=== PATIENT | male | born 1945 | race Caucasian/White ===

== ENCOUNTER 2024-03-13 11:00 | Inpatient (IN) | payer MEDICARE ==
[~2024-03-13] VITALS: Ht 167.6 cm; Wt 121.5 kg
--- NOTE | 2024-03-13 13:51 | EKG ---
[facility] Test Date: 2024-03-13 Test Time: 13:20:44 Pat Name: PATRICIO INFANTE Department: Room: Gender: M Quality Intern: [id number] : 1945 Requested By: KENTON COPPOLA Order Number: [id number] Reading MD: Elliot Engel Measurements Intervals [place] Rate: 59 P: 0 UT: 77 QRS: -18 QRSD: 128 T: 39 QT: 451 QTc: 446 Interpretive Statements Sinus rhythm Right bundle branch block No previous ECG available for comparison Electronically Signed On 03-13-2024 17:05:43 CDT by Elliot Engel Please click the below link to view image of tracing.
[2024-03-13 14:12] VITALS: BP_SYST 155; PULSE 60; RESP 18; TEMP 98.1
[2024-03-13] MEDS ORDERED: FEBU40TA6 PO (14:39)
[2024-03-13] MEDS ORDERED: VITAMIN B6 PO (14:39)
[2024-03-13] MEDS ORDERED: LUTE1CAP5 PO (14:39)
[2024-03-13] MEDS ORDERED: TORS5TAB12 PO (14:39)
[2024-03-13] MEDS ORDERED: VITAMIN A PO (14:39)
[2024-03-13] MEDS ORDERED: VITAMIN C PO (14:39)
[2024-03-13] MEDS ORDERED: SUPER BEETS PO (14:39)
[2024-03-13] MEDS ORDERED: VITAMIN D3 PO (14:39)
[2024-03-18] VITALS (26 sets, daily range): BP systolic 108–169; BP diastolic 53–93; PULSE 57–91; RESP 17–20; TEMP 97.1–98.6; O2SAT 96–97
[2024-03-18] MEDS: LACTATED RINGERS 1000ML 1,000 ML IV ONE (07:09)
[2024-03-18] MEDS: ceFAZolin SODIUM 2 GM VIAL ONE (07:09)
[2024-03-18] MEDS: acetaMINOPHEN 100 ML ONE (07:39)
[2024-03-18] MEDS: morPHINE 4 MG SYG ONE (07:39)
[2024-03-18] MEDS: FAMOTIDINE 20MG VIAL IV ONE (07:40)
[2024-03-18] MEDS ORDERED: ROPivacaine 0.5% 5MG/ML 30ML ONE ×2 (07:42→07:54)
[2024-03-18] MEDS ORDERED: TRANEXAMIC ACID 1000MG/10ML ONE ×2 (07:42→07:43)
[2024-03-18] MEDS ORDERED: FENTanyl CITRate PF 50 MCG/1 ML 2ML VIAL ONE ×2 (07:52→12:00)
[2024-03-18] MEDS ORDERED: rocuRONium bROMide 10MG/1ML 5ML VL ONE (07:52)
[2024-03-18] MEDS ORDERED: MIDAZOLAM HCL 1 MG/ML 2ML VIAL ONE (07:52)
[2024-03-18] MEDS ORDERED: proPOFol 10 MG/ML 20ML VIAL IV ONE (07:53)
[2024-03-18] MEDS ORDERED: LIDOCAINE PF 100MG/5ML (2%) SYRINGE 5ML ONE (07:53)
[2024-03-18] MEDS: ROPivacaine 0.5% 5MG/ML 30ML IJ ONE (08:55)
[2024-03-18] MEDS ORDERED: ePHEDrine SULFate 50 MG/ML AMPULE ONE (09:18)
[2024-03-18] MEDS ORDERED: dexaMETHasone SOD PHOSPHATE 4 MG/ML 1ML VIAL ONE (09:21)
[2024-03-18] MEDS ORDERED: ondanSETRON 4MG INJ ONE (09:22)
[2024-03-18] MEDS ORDERED: NEOSTIGMINE METHYLSULFATE 1MG/ML IV ONE (10:02)
[2024-03-18] MEDS ORDERED: GLYCOPYRROLATE 0.2 MG/ML 5 ML VIAL ONE (10:02)
[2024-03-18] MEDS ORDERED: traMADol HCL 50 MG TABLET PO PRN (12:30)
[2024-03-18] MEDS ORDERED: PoTASSium chloRIDE 20MEQ ER 20 MEQ ERTAB PO PRN (12:30)
[2024-03-18] MEDS ORDERED: FERROUS FUMARATE 324 MG TABLET PO PRN (12:30)
[2024-03-18] MEDS ORDERED: CALCIUM CARB 500MG PO PRN (12:30)
[2024-03-18] MEDS ORDERED: PoTASSium chloRIDE 20MEQ/100ML 100 ML IV PRN (12:30)
[2024-03-18] MEDS ORDERED: PoTASSium chl 10% ELIXIR 20MEQ 20 MEQ/15 ML UDCUP PO PRN (12:30)
--- NOTE | 2024-03-18 13:19 | HMCIMG ---
KNEE/PATELLA 1-2VWS RT HISTORY: Post total arthroplasty COMPARISON: None TECHNIQUE: 2 images of right knee were obtained status post surgery. FINDINGS: Total right knee arthroplasty changes are seen with soft tissue swelling and soft tissue emphysema. Vascular calcifications are seen. There is no acute displaced fracture or dislocation. Degenerative changes are seen. IMPRESSION: 1. Findings as described above.
[2024-03-18] MEDS: ondanSETRON 4MG INJ IVP PRN (13:22)
[2024-03-18] MEDS: 0.9%NACL 1000ML 1,000 ML IV SCH (13:23)
--- NOTE | 2024-03-18 13:49 | OP ---
Operative Note: DATE OF PROCEDURE: 03/18/24 PREOPERATIVE DIAGNOSIS: Right knee osteoarthritis. POSTOPERATIVE DIAGNOSIS: Right knee osteoarthritis. PROCEDURE PERFORMED: Right knee total knee arthroplasty. SURGEON: Marivel Tabares MD FIRST FRONT VENTILATOR: Jay Santiago and Annette Soliz. ANESTHESIA: General with adductor canal block. ANESTHESIA: JULIAN Conley. ESTIMATED BLOOD LOSS: 100 cc. COMPLICATIONS: None. DRAINS: None. SPECIMENS REMOVED: resected bone. Not sent to pathology. IMPLANTS: [employer] II BCS size 7 Oxinium femur, size 6 tibial base plate, 35 mm patella, 13 mm polyethylene STATEMENT OF MEDICAL NECESSITY: The patient is a 78-year-old male who suffers from right knee osteoarthritis failing conservative management. After discussion of the risks, benefits, and alternatives with the patient, they voluntarily agreed to undergo the aforementioned procedure. DESCRIPTION OF PROCEDURE: Patient was properly identified in the preoperative holding area. Surgical site marking was verified and surgery consent reviewed. The patient was then taken to the operating room and placed in supine position on the OR table. After induction of general anesthesia, preoperative antibiotics were given, all bony prominences were well-padded, and a well padded tourniquet was applied but not inflated at this time. The right lower extremity was then prepped and draped in usual sterile fashion. Surgical time out was done verifying correct surgery, side, site, and location to be performed. We then began the procedure by exsanguinating the limb using an Esmarch and inflating the tourniquet to 350 mmHg. At this point, we made an anterior midline incision using a 10 blade, coming down sharply the level of the fascia. Skin flaps were elevated medially and laterally. We then obtained a clean 10 blade and performed a standard medial parapatellar arthrotomy. We excised the infrapatellar fat pad. We performed our soft tissue releases off of the tibia. We transected the ACL and removed the anterior portion of the medial & lateral meniscus. We then brought the knee into hyperflexion with the patella everted. We used our entry reamer to enter the femoral canal. We then placed our intramedullary cutting guide for our distal femoral cutting block. We then performed our distal femoral osteotomy ensuring appropriate rotation and removed the bony wafer. We then removed these pins and block and then used jig 2 to size the distal femur with the after mentioned size found. We then placed our 5-in-1 cutting block in 5 degrees of external rotation and took our 5 cuts ensuring to protect the patellar tendon and the collateral ligaments. We then removed the cutting block and our bony fragments using a curved osteotome. We then placed our PCL retractor subluxating the tibia anteriorly. Using an extra medullary tibial cutting guide, we hung the block for our proximal tibial cut taking 2 mm off the more diseased portion. Prior to pinning this block in place, we ensured appropriate varus/valgus alignment and posterior slope similar to the nulato slope of the patient's knee. We then performed our proximal tibial osteotomy and removed the bony wafer using Bovie electrocautery to release any remaining soft tissue attachments. We then used our tibial sizing paddle and checked once more for varus & valgus alignment and found this to be appropriate. At this point, we pinned our tibial paddle in place. We then removed the PCL retractor and subluxated the tibia posteriorly while we placed our femoral trial component. We then finished preparing the notch with the reamer and box chisel. The notch portion of the trial femoral component was then placed. A posterior stabilized polyethylene, size 9 trial was placed. This was immediately increased up to a size 11 polyethylene secondary to laxity with varus and valgus stress. We noted at this point the rotation of the tibial base plate appeared to cause problems with the articulation when going into flexion. We corrected the tibial base plate rotation. Patient was noted with a range of motion to be tight in the posterolateral portion of the knee. We elected to recut the tibia allowing for a small portion of the patient's valgus alignment to remain in order to balance. We also added more posterior slope. We then increased our polyethylene size up to a 13 mm. The knee was then taken through range of motion and found to have stable full range of motion. We then placed a bump under the ankle and everted the patella to perform our freehand cut of the undersurface the patella. We then sized our patella and reamed to the lug holes for this. We placed our trial patellar component and begin to take the knee through range of motion. The patella had extreme lateral tracking, and we performed a large lateral release. However the patella continued to have significant lateral tracking. We adjusted our tibial component rotation and placed a towel clip to approximate the soft tissues and had better patellar tracking. At this point we began removing our trial components and punched the tibial keel prior to removing our tibial trial component. Final components were opened and cement was mixed on the back table while we injected local cocktail in the posterior capsule. We then thoroughly irrigated out the bone and dried the bony surfaces. We cemented our tibial component in place ensuring to remove excess cement and placed our trial polyethylene. We then cemented our femoral component in place once again taking time to ensure excess cement was removed leg was brought into full extension to help squeeze the excess cement from around the femoral component. We then brought the knee back in a flexion to remove this portion of the cement at this point we placed the ankle in a bump thoroughly irrigated off the patellar component and cemented our patellar component in standard fashion again removing excess cement. While we waited for the cement to cure, we thoroughly irrigated out the wound with normal saline. Once our cement had cured, we took the knee through a range of motion and found full and stable range of motion. We then elected to use the size 13 polyethylene and removed our trial polyethylene. We impacted our final polyethylene component in place in standard fashion and took the knee through a range of motion check once more. This was satisfactory so we began to repair the arthrotomy using #1 Vicryl in interrupted [id number] fashion. Subcutaneous tissue was repaired using 2-0 Vicryl. Running subcuticular 3-0 Monocryl stitch with Dermabond placed over this for the skin. We then applied a foam barrier dressing and a pressure dressing consisting of 4 x 4's fluffs and an Melchor wrap. The tourniquet was then deflated. Patient was awakened from anesthesia, and they were taken to the recovery room in stable condition. MARIVEL TABARES MD Mar 18, 2024 13:49
[2024-03-18] MEDS: GABApentin 100 MG CAPSULE PO SCH (14:24)
[2024-03-18] MEDS: HYDROcodone/APAP 5/325 1 TAB TABLET PO PRN (14:24)
[2024-03-18] MEDS: hydroMORPHone 0.5 MG SYG (0.5MG/0.5ML) IVP PRN (17:03)
[2024-03-18] MEDS: ceFAZolin SODIUM 2 GM VIAL IVP SCH (17:04)
[2024-03-18] MEDS: doCUSate SODIUM 100 MG CAP PO SCH (20:23)
[2024-03-19] VITALS (8 sets, daily range): BP systolic 96–133; BP diastolic 54–75; PULSE 72–86; RESP 18–19; TEMP 98.2–99.6; O2SAT 94–95
[2024-03-19 05:00] LABS: HEMATOCRIT 38.2 % (42-54); MEAN CORPUSCULAR HEMOGLOBIN 29.5 pg (27.0-33.0); MEAN CORPUSCULAR HGB CONC 33.2 g/dL (32.0-36.0); MEAN CORPUSCULAR VOLUME 88.8 fL (79-99); RED BLOOD CELL COUNT(AUTO) 4.3 MIL/uL (4.50-6.20); RED CELL DISTRIBUTION WIDTH 13.8 % (11.0-15.5); WHITE BLOOD COUNT (AUTO) 12.5 K/uL (4.8-10.8)
[2024-03-19 05:08] LABS: CREATININE 1.3 mg/dL (0.5-1.3); POTASSIUM 3.9 mmol/L (3.5-5.1)
[2024-03-19] MEDS: CYCLOBENZAPRINE HCL 10 MG TABLET PO PRN (07:40)
[2024-03-19] MEDS: polyETHYLene GLYCol 3350 17 GM POWD.PACK PO SCH (07:41)
[2024-03-19] MEDS: ASPIRIN 325MG EC TAB PO SCH (07:41)
--- NOTE | 2024-03-19 07:49 | PN ---
Ortho postop day one. This morning patient is awake alert and oriented. Reports that he has moderate to severe pain. States that he does not feel that he is going to be able to proceed with physical therapy he was given hydrocodone about an hour ago. I have asked him to the patient if he has no improvement we have communicated to nursing to administer other analgesics ordered for breakthrough pain. I have stressed him to continue with icing. I have also stressed to continue extending and flexing the knee. Aside from his moderate to severe pain he feels he is doing well and states that he we will do his best to try to progress with therapy today. Vital signs have been stable. Afebrile. Laboratory results reviewed. Noted to have a drop in hemoglobin and hematocrit as expected after total knee arthroplasty. Currently patient is asymptomatic. We will address per protocol as necessary. Operative findings discussed with the patient. Voiding on his own without difficulty. Performing incentive spirometry as instructed and returned demonstration proper. I have really encouraged him to extend and flex throughout the day. Continue icing. The Melchor bandage has been removed and the dressing to the anterior drawer is intact. Gastrocnemius a soft nontender. Ambulated only about 5 ft yesterday with physical therapy and is pending further physical therapy this morning. Assessment: Status post right total knee arthroplasty. Asymptomatic acute postoperative blood loss anemia. Plan: Continue with Dr. Tabares's total knee arthroplasty protocol and discharge planning. Asymptomatic acute postoperative blood loss anemia addressed with protocol as necessary. Vitals/Labs Vital Signs Date Time Temp Pulse Resp B/P (MAP) Pulse Ox O2 Delivery O2 Flow Rate FiO2 03/19/24 03:55 99.0 86 18 111/57 96 Room Air 21 03/18/24 20:08 0 Laboratory Tests 03/19/24 04:41 Medications Current Medications Cefazolin Sodium 2 gm STK-MED ONCE .ROUTE; Start 03/18/24 at 06:29; Stop 03/18/24 at 06:31; Status DC Lactated Ringer's 1,000 ml @ As Directed STK-MED ONCE IV Last administered on 03/18/24at 07:09; Start 03/18/24 at 06:29; Stop 03/18/24 at 06:31; Status DC Morphine Sulfate 4 mg STK-MED ONCE .ROUTE; Start 03/18/24 at 07:39; Stop 03/18/24 at 07:39; Status DC Acetaminophen 100 ml @ As Directed STK-MED ONCE .ROUTE; Start 03/18/24 at 07:39; Stop 03/18/24 at 07:40; Status DC Famotidine 20 mg STK-MED ONCE IV; Start 03/18/24 at 07:40; Stop 03/18/24 at 07:40; Status DC Tranexamic Acid 1,000 mg STK-MED ONCE .ROUTE; Start 03/18/24 at 07:42; Stop 03/18/24 at 07:43; Status DC Ropivacaine 150 mg STK-MED ONCE .ROUTE; Start 03/18/24 at 07:42; Stop 03/18/24 at 07:43; Status DC Tranexamic Acid 1,000 mg STK-MED ONCE .ROUTE; Start 03/18/24 at 07:43; Stop 03/18/24 at 07:43; Status DC Midazolam HCl 2 mg STK-MED ONCE .ROUTE; Start 03/18/24 at 07:52; Stop 03/18/24 at 07:52; Status DC Rocuronium [place] 50 mg STK-MED ONCE .ROUTE; Start 03/18/24 at 07:52; Stop 03/18/24 at 07:52; Status DC Fentanyl Citrate 100 mcg STK-MED ONCE .ROUTE; Start 03/18/24 at 07:52; Stop 03/18/24 at 07:53; Status DC Lidocaine HCl 100 mg STK-MED ONCE .ROUTE; Start 03/18/24 at 07:53; Stop 03/18/24 at 07:53; Status DC Propofol 200 mg STK-MED ONCE IV; Start 03/18/24 at 07:53; Stop 03/18/24 at 07:53; Status DC Ropivacaine 150 mg STK-MED ONCE .ROUTE; Start 03/18/24 at 07:54; Stop 03/18/24 at 07:55; Status DC Ephedrine Sulfate 50 mg STK-MED ONCE .ROUTE; Start 03/18/24 at 09:18; Stop 03/18/24 at 09:18; Status DC Dexamethasone Sodium Phosphate 4 mg STK-MED ONCE .ROUTE; Start 03/18/24 at 09:21; Stop 03/18/24 at 09:22; Status DC Ondansetron HCl 4 mg STK-MED ONCE .ROUTE; Start 03/18/24 at 09:22; Stop 03/18/24 at 09:22; Status DC Ropivacaine 150 mg STK-MED ONCE IJ Last administered on 03/18/24at 08:55; Start 03/18/24 at 08:55; Stop 03/18/24 at 09:29; Status DC Cefazolin Sodium 2 gm STK-MED ONCE IVPB Last administered on 03/18/24at 09:11; Start 03/18/24 at 09:11; Stop 03/18/24 at 09:29; Status DC Tranexamic Acid 1,000 mg STK-MED ONCE IV Last administered on 03/18/24at 09:16; Start 03/18/24 at 09:16; Stop 03/18/24 at 09:29; Status DC Glycopyrrolate 1 mg STK-MED ONCE .ROUTE; Start 03/18/24 at 10:02; Stop 03/18/24 at 10:03; Status DC Neostigmine Methylsulfate 10 mg STK-MED ONCE IV; Start 03/18/24 at 10:02; Stop 03/18/24 at 10:03; Status DC Fentanyl Citrate 100 mcg STK-MED ONCE .ROUTE; Start 03/18/24 at 12:00; Stop 03/18/24 at 12:00; Status DC Sodium Chloride 1,000 ml @ 100 mls/hr Q10H IV Last administered on 03/18/24at 22:36; Start 03/18/24 at 12:30; Stop 03/19/24 at 12:29 Polyethylene Glycol 17 gm DAILY PO Last administered on 03/19/24at 07:41; Start 03/19/24 at 09:00; Stop 04/18/24 at 08:59 Bisacodyl 10 mg DAILY PRN RC; Start 03/21/24 at 12:30; Stop 04/20/24 at 12:29 Ferrous Fumarate 324 mg DAILY PRN PO; Start 03/18/24 at 12:30; Stop 04/17/24 at 12:29 Ondansetron HCl 4 mg Q6H PRN IVP Last administered on 03/18/24at 13:22; Start 03/18/24 at 12:30; Stop 04/17/24 at 12:29 Calcium Carbonate 500 mg Q12H PRN PO; Start 03/18/24 at 12:30; Stop 04/17/24 at 12:29 Cefazolin Sodium 2 gm Q8H IVP Last administered on 03/19/24at 01:17; Start 03/18/24 at 17:30; Stop 03/19/24 at 01:31; Status DC Cyclobenzaprine HCl 5 mg Q8H PRN PO Last administered on 03/19/24at 07:40; Start 03/18/24 at 12:30; Stop 04/17/24 at 12:29 Gabapentin 100 mg TID PO Last administered on 03/19/24at 07:41; Start 03/18/24 at 14:00; Stop 04/17/24 at 13:59 Aspirin 325 mg DAILY PO Last administered on 03/19/24at 07:41; Start 03/19/24 at 09:00; Stop 04/18/24 at 08:59 Docusate Sodium 100 mg BID PO Last administered on 03/19/24at 07:41; Start 03/18/24 at 21:00; Stop 04/17/24 at 20:59 Potassium Chloride 100 ml @ 100 mls/hr AD PRN IV; Start 03/18/24 at 12:30; Stop 04/17/24 at 12:29 Potassium Chloride 20 meq AD PRN PO; Start 03/18/24 at 12:30; Stop 04/17/24 at 12:29 Potassium Chloride 20 meq AD PRN PO; Start 03/18/24 at 12:30; Stop 04/17/24 at 12:29 Tramadol HCl 50 mg Q6H PRN PO; Start 03/18/24 at 12:30; Stop 03/23/24 at 12:29 Acetaminophen/ Hydrocodone Bitart Q4H PRN PO Last administered on 03/19/24at 06:45; Start 03/18/24 at 12:30; Stop 03/23/24 at 12:29 Home Med (Febuxostat 1 TAB) DAILY PO; Start 03/19/24 at 09:00; Stop 04/18/24 at 08:59 Home Med Lutein/ Zeaxanthin (Ocuvite Lut... DAILY PO; Start 03/19/24 at 09:00; Stop 04/18/24 at 08:59 Home Med (Torsemide 1 TAB) DAILY PO; Start 03/19/24 at 09:00; Stop 04/18/24 at 08:59 Home Med ([Super Beets] 2 GUM) AM PO; Start 03/19/24 at 09:00; Stop 04/18/24 at 08:59 Home Med ([Vitamin A] 2,400 MG) AM PO; Start 03/19/24 at 09:00; Stop 04/18/24 at 08:59 Home Med ([Vitamin B6] 100 MG) AM PO; Start 03/19/24 at 09:00; Stop 04/18/24 at 08:59 Home Med ([Vitamin C] 2 GUM) AM PO; Start 03/19/24 at 09:00; Stop 04/18/24 at 08:59 Home Med ([Vitamin D3] 2 GUM) AM PO; Start 03/19/24 at 09:00; Stop 04/18/24 at 08:59 Hydromorphone HCl 0.2 mg Q6H PRN IVP Last administered on 03/18/24at 17:03; Start 03/18/24 at 12:30; Stop 03/23/24 at 12:29 TR VAUGHAN NP Mar 19, 2024 07:49
[2024-03-19] MEDS: FEBUXOSTAT PO SCH (09:00)
[2024-03-19] MEDS: VITAMIN A PO SCH (09:00)
[2024-03-19] MEDS: TORSEMIDE PO SCH (09:00)
[2024-03-19] MEDS: Lutein/Zeaxanthin (Ocuvite Lutein 25-5 mg Softgel) 1 CAP PO SCH (09:00)
[2024-03-19] MEDS: GUM PO SCH ×3 (09:00)
[2024-03-19] MEDS: VITAMIN B6 100 MG PO SCH (09:00)
[2024-03-19] MEDS: CeleCOXib 200 MG CAP PO SCH (21:02)
[2024-03-20 04:53] VITALS: BP 104/51; PULSE 76; RESP 18; TEMP 98.6
--- NOTE | 2024-03-20 07:43 | PN ---
Ortho postop day two Patient reports pain control is improving. He is out of bed this morning sitting in the chair at bedside. Reports using ice on and off every 15 minutes. States that he has been using IS every hour. Vital signs stable, Tm 99.7 Alert and oriented x3, no acute distress Sitting upright in chair at bedside with the knee flexed. Nonlabored breathing Right lower extremity -surgical dressing clean dry and intact -moderate amount of edema -flexion of 75, passive assist with the extension to lacking 15 without applying force Patient is awaiting authorization and acceptance for [facility] facility Patient was able to ambulate with physical therapy yesterday 15 ft x 2 A/P: Postoperative day two status post right total knee arthroplasty doing well Acute blood loss anemia asymptomatic We will continue work on postoperative planning. Continue with my routine postoperative protocol. Continue to monitor for signs or symptoms of acute blood loss anemia. Wean to p.o. pain medication only. Vitals/Labs Vital Signs Date Time Temp Pulse Resp B/P (MAP) Pulse Ox O2 Delivery O2 Flow Rate FiO2 03/20/24 04:53 98.6 76 18 104/51 96 Room Air 21 03/19/24 20:12 0 Medications Current Medications Cefazolin Sodium 2 gm STK-MED ONCE .ROUTE; Start 03/18/24 at 06:29; Stop 03/18/24 at 06:31; Status DC Lactated Ringer's 1,000 ml @ As Directed STK-MED ONCE IV Last administered on 03/18/24at 07:09; Start 03/18/24 at 06:29; Stop 03/18/24 at 06:31; Status DC Morphine Sulfate 4 mg STK-MED ONCE .ROUTE; Start 03/18/24 at 07:39; Stop 03/18/24 at 07:39; Status DC Acetaminophen 100 ml @ As Directed STK-MED ONCE .ROUTE; Start 03/18/24 at 07:39; Stop 03/18/24 at 07:40; Status DC Famotidine 20 mg STK-MED ONCE IV; Start 03/18/24 at 07:40; Stop 03/18/24 at 07:40; Status DC Tranexamic Acid 1,000 mg STK-MED ONCE .ROUTE; Start 03/18/24 at 07:42; Stop 03/18/24 at 07:43; Status DC Ropivacaine 150 mg STK-MED ONCE .ROUTE; Start 03/18/24 at 07:42; Stop 03/18/24 at 07:43; Status DC Tranexamic Acid 1,000 mg STK-MED ONCE .ROUTE; Start 03/18/24 at 07:43; Stop 03/18/24 at 07:43; Status DC Midazolam HCl 2 mg STK-MED ONCE .ROUTE; Start 03/18/24 at 07:52; Stop 03/18/24 at 07:52; Status DC Rocuronium [place] 50 mg STK-MED ONCE .ROUTE; Start 03/18/24 at 07:52; Stop 03/18/24 at 07:52; Status DC Fentanyl Citrate 100 mcg STK-MED ONCE .ROUTE; Start 03/18/24 at 07:52; Stop 03/18/24 at 07:53; Status DC Lidocaine HCl 100 mg STK-MED ONCE .ROUTE; Start 03/18/24 at 07:53; Stop 03/18/24 at 07:53; Status DC Propofol 200 mg STK-MED ONCE IV; Start 03/18/24 at 07:53; Stop 03/18/24 at 07 :53; Status DC Ropivacaine 150 mg STK-MED ONCE .ROUTE; Start 03/18/24 at 07:54; Stop 03/18/24 at 07:55; Status DC Ephedrine Sulfate 50 mg STK-MED ONCE .ROUTE; Start 03/18/24 at 09:18; Stop 03/18/24 at 09:18; Status DC Dexamethasone Sodium Phosphate 4 mg STK-MED ONCE .ROUTE; Start 03/18/24 at 09:21; Stop 03/18/24 at 09:22; Status DC Ondansetron HCl 4 mg STK-MED ONCE .ROUTE; Start 03/18/24 at 09:22; Stop 03/18/24 at 09:22; Status DC Ropivacaine 150 mg STK-MED ONCE IJ Last administered on 03/18/24at 08:55; Start 03/18/24 at 08:55; Stop 03/18/24 at 09:29; Status DC Cefazolin Sodium 2 gm STK-MED ONCE IVPB Last administered on 03/18/24at 09:11; Start 03/18/24 at 09:11; Stop 03/18/24 at 09:29; Status DC Tranexamic Acid 1,000 mg STK-MED ONCE IV Last administered on 03/18/24at 09:16; Start 03/18/24 at 09:16; Stop 03/18/24 at 09:29; Status DC Glycopyrrolate 1 mg STK-MED ONCE .ROUTE; Start 03/18/24 at 10:02; Stop 03/18/24 at 10:03; Status DC Neostigmine Methylsulfate 10 mg STK-MED ONCE IV; Start 03/18/24 at 10:02; Stop 03/18/24 at 10:03; Status DC Fentanyl Citrate 100 mcg STK-MED ONCE .ROUTE; Start 03/18/24 at 12:00; Stop 03/18/24 at 12:00; Status DC Sodium Chloride 1,000 ml @ 100 mls/hr Q10H IV Last administered on 03/18/24at 22:36; Start 03/18/24 at 12:30; Stop 03/19/24 at 12:29; Status DC Polyethylene Glycol 17 gm DAILY PO Last administered on 03/19/24at 07:41; Start 03/19/24 at 09:00; Stop 04/18/24 at 08:59 Bisacodyl 10 mg DAILY PRN RC; Start 03/21/24 at 12:30; Stop 04/20/24 at 12:29 Ferrous Fumarate 324 mg DAILY PRN PO; Start 03/18/24 at 12:30; Stop 04/17/24 at 12:29 Ondansetron HCl 4 mg Q6H PRN IVP Last administered on 03/18/24at 13:22; Start 03/18/24 at 12:30; Stop 04/17/24 at 12:29 Calcium Carbonate 500 mg Q12H PRN PO; Start 03/18/24 at 12:30; Stop 04/17/24 at 12:29 Cefazolin Sodium 2 gm Q8H IVP Last administered on 03/19/24at 01:17; Start 03/18/24 at 17:30; Stop 03/19/24 at 01:31; Status DC Cyclobenzaprine HCl 5 mg Q8H PRN PO Last administered on 03/19/24at 07:40; Start 03/18/24 at 12:30; Stop 04/17/24 at 12:29 Gabapentin 100 mg TID PO Last administered on 03/19/24at 21:02; Start 03/18/24 at 14:00; Stop 04/17/24 at 13:59 Aspirin 325 mg DAILY PO Last administered on 03/19/24at 07:41; Start 03/19/24 at 09:00; Stop 04/18/24 at 08:59 Docusate Sodium 100 mg BID PO Last administered on 03/19/24at 21:02; Start 03/18/24 at 21:00; Stop 04/17/24 at 20:59 Potassium Chloride 100 ml @ 100 mls/hr AD PRN IV; Start 03/18/24 at 12:30; Stop 04/17/24 at 12:29 Potassium Chloride 20 meq AD PRN PO; Start 03/18/24 at 12:30; Stop 04/17/24 at 12:29 Potassium Chloride 20 meq AD PRN PO; Start 03/18/24 at 12:30; Stop 04/17/24 at 12:29 Tramadol HCl 50 mg Q6H PRN PO; Start 03/18/24 at 12:30; Stop 03/23/24 at 12:29 Acetaminophen/ Hydrocodone Bitart Q4H PRN PO Last administered on 03/19/24at 17:11; Start 03/18/24 at 12:30; Stop 03/23/24 at 12:29 Home Med (Febuxostat 1 TAB) DAILY PO; Start 03/19/24 at 09:00; Stop 04/18/24 at 08:59 Home Med Lutein/ Zeaxanthin (Ocuvite Lut... DAILY PO; Start 03/19/24 at 09:00; Stop 04/18/24 at 08:59 Home Med (Torsemide 1 TAB) DAILY PO; Start 03/19/24 at 09:00; Stop 04/18/24 at 08:59 Home Med ([Super Beets] 2 GUM) AM PO; Start 03/19/24 at 09:00; Stop 04/18/24 at 08:59 Home Med ([Vitamin A] 2,400 MG) AM PO; Start 03/19/24 at 09:00; Stop 04/18/24 at 08:59 Home Med ([Vitamin B6] 100 MG) AM PO; Start 03/19/24 at 09:00; Stop 04/18/24 at 08:59 Home Med ([Vitamin C] 2 GUM) AM PO; Start 03/19/24 at 09:00; Stop 04/18/24 at 08:59 Home Med ([Vitamin D3] 2 GUM) AM PO; Start 03/19/24 at 09:00; Stop 04/18/24 at 08:59 Hydromorphone HCl 0.2 mg Q6H PRN IVP Last administered on 03/19/24at 10:37; Start 03/18/24 at 12:30; Stop 03/23/24 at 12:29 Celecoxib 200 mg BID PO Last administered on 03/19/24at 21:02; Start 03/19/24 at 21:00; Stop 04/18/24 at 20:59 JOE COPPOLA MD Mar 20, 2024 07:43
[2024-03-20 08:00] VITALS: BP 135/54; PULSE 79; RESP 18; TEMP 99.4; O2SAT 99
[2024-03-20 12:00] VITALS: BP 104/62; PULSE 72; RESP 18; TEMP 98.7
[2024-03-20 15:59] VITALS: BP 105/40; PULSE 74; RESP 18; TEMP 98.5
[2024-03-20] MEDS ORDERED: ASPI-891 PO (17:24)
[2024-03-20] MEDS ORDERED: DOCU-116 PO (17:24)
[2024-03-20] MEDS ORDERED: CELE200 PO (17:24)
[2024-03-20] MEDS ORDERED: CYCL-309 PO (17:24)
[2024-03-20] MEDS ORDERED: HYDR-4060 PO (17:24)
[2024-03-20] MEDS ORDERED: GABA100C PO (17:24)
--- NOTE | 2024-03-20 17:27 | DS ---
Discharge Summary Hospital Course Summary: The patient was admitted to the hospital postoperatively on 03/19/2024 after undergoing right total knee arthroplasty. They did well with routine postoperative pain control. They worked well with physical therapy. The patient developed some acute blood loss anemia but remained asymptomatic. Hospital course was otherwise uncomplicated. They were subsequently able to be discharged on postoperative day three after three midnight stay requirement per insurance had been met for [facility]. Family Services Assistant(s): none Procedure(s): Right total knee arthroplasty, 03/19/2024 Assessment/Plan: ASSESSMENT: Postop day three status post right total knee arthroplasty PLAN: See discharge instructions Discharge Instructions: Begin working with physical therapy at the facility. Remembered work on hamstring stretching. Try to spend as much time upright and out of bed during daylight hours as you can.. Dressing may be removed 03/22/24 and left open to air. Showers ok allowing soap and water to run over the wound. Pat dry. Do not submerge wound in tub/pool. Do not apply ointments. Do not apply Betadine. Do not apply peroxide. Ice packs to decrease pain/swelling. Prescriptions have been sent to the pharmacy: *[place] 5/325mg 1-2 tab every 6 hours as needed for severe pain. (please call fo r refills) Cyclobenzaprine 5mg 1 tab every 8 hours as needed for muscle spasm pain. Gabapentin 100mg 1 tab every 8 hours (may discontinue if drowsy). Colace 100mg 1 tab orally twice a day as needed for constipation. Aspirin 325mg for 30 days to prevent blood clots. Call for a follow-up appointment in 2-3 weeks at [facility]. Home Medications: Active Scripts Hydrocodone/Acetaminophen (Hydrocodon-Acetaminophen 5-325) 5 Mg-325 Mg Tablet, 1-2 TAB PO Q4H PRN for MODERATE/SEVERE PAIN LEVEL, #84 TAB 0 Refills Prov:JOE COPPOLA MD 03/20/24 Reported Medications Torsemide (Torsemide) 5 Mg Tablet, 1 TAB PO DAILY for 30 Days, #30 TAB 0 Refills 03/13/24 Febuxostat (Febuxostat) 40 Mg Tablet, 1 TAB PO DAILY for 30 Days, #30 TAB 0 Refills 03/13/24 [Vitamin B6] No Conflict Check, 100 MG PO AM 03/13/24 [Vitamin A] No Conflict Check, 2400 MG PO AM 03/13/24 Lutein/Zeaxanthin (Ocuvite Lutein 25-5 mg Softgel) 25 Mg-5 Mg Capsule, 1 CAP PO DAILY for 30 Days, #30 CAP 0 Refills 03/13/24 [Vitamin D3] No Conflict Check, 2 GUM PO AM 03/13/24 [Super Beets] No Conflict Check, 2 GUM PO AM 03/13/24 [Vitamin C] No Conflict Check, 2 GUM PO AM 03/13/24 JOE COPPOLA MD Mar 20, 2024 17:26
[2024-03-20 20:00] VITALS: BP 131/60; PULSE 71; RESP 20; TEMP 98; O2SAT 99
[2024-03-21] VITALS: BP 118/58; PULSE 67; RESP 22; TEMP 99.4
[2024-03-21 04:00] VITALS: BP 124/56; PULSE 67; RESP 20; TEMP 99
[2024-03-21 08:00] VITALS: BP 104/57; PULSE 83; RESP 18; TEMP 99.3; O2SAT 99
[2024-03-21] MEDS ORDERED: BisaCODYL 10 MG SUPP.RECT RC PRN (12:30)
== END 2024-03-21 12:00 | DRG 470 ==
LOC: DAHIP 03-18 06:09 → OBSVTOIN 03-18 06:09 → 4CH 03-18 13:15
PROVIDERS: ADMIT Student in an Organized Health Care Education/Training Program; ATTEND Student in an Organized Health Care Education/Training Program
PROC: 0SRC0J9 Replacement of Right Knee Joint with Synthetic Substitute, Cemented, Open Approach (ICD-10-PCS; principal; 2024-03-18 08:28)
DX: M17.11 Unilateral primary osteoarthritis, right knee (principal); D62 Acute posthemorrhagic anemia
CPT/HCPCS: 36415; 73560; 80048; 84134; 85027; 86140; 87641; 93005; G0378; J1100; J1171; J2003; J2250; J2270; J2405; J2704; J2710; J2795; J3010; J3490; J7120; A4213; A4215; A4216; A4221; A4222; A4223; A4649; A4663; A4930; A6255; C1713; C1776; J0690